=== PATIENT | male | born 1965 | race Caucasian/White ===

== ENCOUNTER 2019-03-09 10:25 | Emergency (ER) | payer OTHER ==
[2019-03-09 10:32] VITALS: BP 136/96
[2019-03-09] MEDS ORDERED: Tenofovir/Emtricitab 200/300 * TAB PO ONE ×2 (10:34→12:00)
[2019-03-09] MEDS ORDERED: Raltegravir* 400 MG TAB PO ONE ×2 (10:34→12:00)
[2019-03-09] MEDS ORDERED: Ondansetron ODT TAB* 4 MG PO ONE (10:39)
--- NOTE | 2019-03-09 11:02 | ED ---
- HPI Summary HPI Summary: 53 year old M presenting to [facility] complains of needlestick through a latex glove to left index finger by HIV+ patient while injecting lidocaine during a procedure for thrombosed hemorrhoids, at 10:00 today 03/09/19. Patient states that he was using a 27 gauge hollow bore needle which barely scratched the surface of his skin on his left index finger. Patient states that he squeezed the scratch, and some blood came out. He washed the area immediately with soap and water. The patient has no complaints. He denies pain, nausea/vomiting, headache. The patient rates the pain 0/10 in severity. Symptoms aggravated by nothing. Symptoms alleviated by nothing. He denies pertinent PMHx. Patient states he takes aspirin 81 mg daily. Surgical hx: back surgery. FHx: prostate cancer. The HIV+ patient who was the source pt is present in the ED, and agrees to have his blood drawn. The source pt states that he takes antiretrovirals and that his most recent viral load was undetectable. Pt also states he was tested for hepatitis C and knows he does not have hepatitis C. Vital signs at triage: HR 78 bpm, BP 136/96, O2 sat 97% Home Medications Medication Instructions Recorded Confirmed Type Raltegravir* [Isentress*] 400 mg PO BID #42 tab 03/09/19 Rx Tenofovir/Emtricitab 200/300 * 1 tab PO DAILY #21 tab 03/09/19 Rx [Truvada 200/300 mg*] - History of Current Complaint Chief Complaint: EDExposureBodyFluid Stated Complaint: NEEDLE STICK Time Seen by Provider: 03/09/19 10:34 Date of Incident: 03/09/19 Time of Incident: 10:00 Job Performing at Time of Incident: while injecting lidocaine during procedure to treat thrombosed hemorrhoids Needlestick: Hollow Needle - 27 G Blood on Needle: Yes Depth of Needlestick: Scratch Depth: superficial Bleeding at Site: Yes - only when squeezed Body Fluid Exposure: Blood 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 Wound, Expressed Blood - Source Information HIV: Low Titer Hepatitis: No - Risk Factors Needlestick Risk Factor: Low Risk: Superficial Scratch - Other Discussed Post-Exposure prophylaxis (PEP) for HIV: Accepted Discussed PEP for Hepatitis-B: Declined Serologic Testing (HIV/HBV) Declined by Patient: No (Must be retained for 90 days, if drawn) PMH/Surg Hx/FS Hx/Imm Hx Previously Healthy: Yes Endocrine/Hematology History: Denies: Hx Diabetes Cardiovascular History: Denies: Hx Hypertension Sensory History: Reports: Hx Contacts or Glasses Opthamlomology History: Reports: Hx Contacts or Glasses - Surgical History Surgical History: Yes Surgery Procedure, Year, and Place: back surgery Infectious Disease History: No Infectious Disease History: Denies: Traveled Outside the [place] in Last 30 Days - Family History Known Family History: Positive: Other - prostate cancer - Social History 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[employer] [place] Lives: With Family Alcohol Use: Occasionally Hx Substance Use: No Substance Use Type: Reports: None Hx Tobacco Use: No Smoking Status (MU): Never Smoked Tobacco Review of Systems Constitutional: Negative Cardiovascular: Negative Respiratory: Negative Gastrointestinal: Negative Negative: Vomiting, Nausea Positive: Other - needle stick site left index finger, barely visible Negative: Headache Psychological: Normal All Other Systems Reviewed And Are Negative: Yes Physical Exam - Summary Physical Exam Summary: Appearance: Well-appearing, no pain distress, well-nourished Skin: Warm, color reflects adequate perfusion, dry, superficial pinprick site left index fingertip,no bleeding Head: Normal Head/Face inspection, atraumatic Eyes: Conjunctiva clear ENT: Normal inspection Neck: Supple, no nodes, no JVD Respiratory: Lungs clear, normal breath sounds, no respiratory distress Cardio: RRR, No murmur, pulses normal, brisk capillary refill Musculoskeletal: Strength Intact/ROM intact, no edema. Psychological: Normal Neuro: Alert, muscle tone normal, no focal deficit Triage Information Reviewed: Yes Vital Signs On Initial Exam: Initial Vitals Temp Pulse Resp BP Pulse Ox 97.2 F 78 16 136/96 97 03/09/19 10:27 03/09/19 10:27 03/09/19 10:27 03/09/19 10:27 03/09/19 10:27 Vital Signs Reviewed: Yes Procedures - Sedation Patient Received Moderate/Deep Sedation with Procedure: No Diagnostics - Vital Signs Vital Signs Temp Pulse Resp BP Pulse Ox 03/09/19 10:27 97.2 F 78 16 136/96 97 - Laboratory Lab Statement: Any lab studies that have been ordered have been reviewed, and results considered in the medical decision making process. Re-Evaluation - Re-Evaluation First Eval Re-Evaluation Time: 11:20 Change: Unchanged Comment: Discussed medications and follow up. Source pt and Dr. Martin stand with one another, converse easily. Source pt gives Dr. Martin permission to view his record. Needlestick Course/Dx - Course Course Of Treatment: 53 year old Male complains of hollow bore 27 gauge needle stick through a latex glove to left index finger from an HIV+ patient with "undetectable" viral load, who is Hep C neg pt while injecting lidocaine during procedure for thrombosed hemorrhoids in the office at 10:00 today 03/09/19. Pt cleansed the wound immediately and expressed some blood. The bleeding is controlled. Pt is otherwise healthy on no medications. Patient medications reviewed this visit. Nurses notes reviewed. Allergies noted. High blood pressure noted. Hepatitis B antibody and antigen, Hepatitis C antibody, and HIV 4th generation labs were ordered. Hepatitis B antibody indeterminate A. Hepatitis B antigen nonreactive. Heptatitis C antibody negative. Hepatitis C antibody index 0.01. HIV 4th generation nonreactive. In the ED course, the patient was given Truvada 1 tab PO and Isentress 400 mg PO, Zofran 8 mg ODT. The pt did not wait to see the labs that were drawn today. Patient will be discharged home with prescriptions for one week of Zofran 8 mg ODT, Isentress 400 mg PO BID, Truvada 200/300 mg 1 tab PO daily and follow up from Dr. Henderson in 2 weeks. Patient was informed that the source patient has given him permission to see his blood work results. Pt was prescribed the remaining 3 weeks of medications to be filled at the [employer] [place] outpatient pharmacy. Patient was instructed to return to Emergency Department for new or worsening symptoms. Patient understands and is agreeable to this plan. - Diagnoses Provider Diagnoses: Exposure to body fluid due to accidental needlestick injury - Physician Notifications Discussed Care Of Patient With: Ray Henderson MD - advises to treat with antiretrovirals and to F/U in 2 weeks Time Discussed With Above Provider: 10:30 Instructed by Provider To: Have Pt Call For Appt. Discharge ED - Sign-Out/Discharge Documenting (check all that apply): Patient Departure - Discharge - Discharge Plan Condition: Stable Disposition: HOME Prescriptions: Raltegravir* [Isentress*] 400 mg PO BID #42 tab Tenofovir/Emtricitab 200/300 * [Truvada 200/300 mg*] 1 tab PO DAILY #21 tab Patient Education Materials: Body Substance Exposure (ED) Referrals: Santiago DANIEL,Ray Sherman [Medical Doctor] - 2 Weeks (If you are unable to see Dr. Henderson withing 2 weeks, see him as soon as possible after the two weeks. ) Additional Instructions: We have given you the start of your post exposure prophylaxis. You will need to take this for a full month. The remainder of the prescription is at the [employer] [facility] [place] employee pharmacy. We have also prescribed zofran 8mg ODT that you may take with the medications. Please have definite F/u with Dr. Henderson in 2 weeks, or as soon as possible after that. The incident patient has given you permission to see his blood work results. - Billing Disposition and Condition Condition: STABLE Disposition: Home - Attestation Statements Document Initiated by Melanie: Yes Documenting Scribe: Yudi Blake Provider For Whom Melanie is Documenting (Include Credential): Barbara Bustamante MD Scribe Attestation: Yudi Perkins scribed for Barbara Bustamante MD on 03/10/19 at 0118. Scribe Documentation Reviewed: Yes Provider Attestation: The documentation as recorded by the Yudi vela accurately reflects the service I personally performed and the decisions made by , Barbara Bustamante MD Status of Scribjanna Document: Viewed
[2019-03-09] MEDS ORDERED: Ondansetron ODT TAB* 4 MG PO PRN (11:26)
[2019-03-09 12:06] LABS: HIV 4th Generation Nonreactive (Nonreactive)
[2019-03-09 12:14] LABS: Hepatitis B Surface Antigen Nonreactive (Nonreactive)
[2019-03-09 12:32] LABS: Hepatitis C Antibody Negative (Negative)
[2019-03-09 16:08] LABS: Hepatitis B Surface Ab Indeterminate (Immune)
== END 2019-03-09 11:34 | disposition home or self-care (01) ==
LOC: ED 10:25
DX: Z77.21 Contact with and (suspected) exposure to potentially hazardous body fluids (principal); W46.0XXA Contact with hypodermic needle, initial encounter; Y93.F9 Activity, other caregiving; Y92.531 Health care provider office as the place of occurrence of the external cause; Y99.0 Civilian activity done for income or pay; Z79.82 Long term (current) use of aspirin; Z79.899 Other long term (current) drug therapy
CPT/HCPCS: 36415; 86706; 86803; 87340; 87389; 99282; A9270-GY